=== PATIENT | female | born 1975 | race Caucasian/White ===

== ENCOUNTER → 2016-07-13 16:54 | Outpatient (CLI) | payer BC ==
[2013-11-07 22:07] VITALS: BMI 19.2
[~2016-07-13 16:54] MED LIST: LEVAQUIN500 MG PO; ZOFRAN ODT4 MG/UDTAB PO
== END | disposition home or self-care (01) ==
LOC: D.MAMMO 10:00
DX: N63 Unspecified lump in breast (principal)

== ENCOUNTER 2017-11-13 16:30 | Emergency (ER) | payer BC ==
[2013-11-07 22:07] VITALS: BMI 19.2
== END 2017-11-13 17:46 | disposition home or self-care (01) ==
LOC: D.ER 16:30
DX: L25.9 Unspecified contact dermatitis, unspecified cause (principal); L50.9 Urticaria, unspecified

== ENCOUNTER → 2017-11-21 11:47 | Outpatient (CLI) | payer BC ==
[2013-11-07 22:07] VITALS: BMI 19.2
== END | disposition home or self-care (01) ==
LOC: D.MAMMO 11-07 15:00
DX: N63.23 Unspecified lump in the left breast, lower outer quadrant (principal)

== ENCOUNTER 2018-10-15 11:00 | Outpatient (CLI) | payer BC | END 2018-10-15 11:30 | disposition home or self-care (01) | LOC: D.MAMMO 11:00 | DX: N63.21 Unspecified lump in the left breast, upper outer quadrant (principal) ==